=== PATIENT | female | born 1945 | race Caucasian/White ===

== ENCOUNTER 2018-11-04 01:23 | Outpatient (CLI) | payer MEDICARE, MEDICAID | END 2018-11-04 23:59 | disposition home or self-care (01) | LOC: DIABETIC 01:23 | PROVIDERS: ATTEND Specialist | DX: E11.9 Type 2 diabetes mellitus without complications (principal); Z79.4 Long term (current) use of insulin | CPT/HCPCS: G0108 ==

== ENCOUNTER 2019-03-31 02:17 | Outpatient (CLI) | payer MEDICARE, MEDICAID | END 2019-03-31 23:59 | disposition home or self-care (01) | LOC: DIABETIC 02:17 | PROVIDERS: ATTEND Specialist | DX: E11.65 Type 2 diabetes mellitus with hyperglycemia (principal); Z79.899 Other long term (current) drug therapy; Z79.01 Long term (current) use of anticoagulants; Z79.84 Long term (current) use of oral hypoglycemic drugs; Z79.891 Long term (current) use of opiate analgesic; Z88.8 Allergy status to other drugs, medicaments and biological substances; Z88.5 Allergy status to narcotic agent; Z88.2 Allergy status to sulfonamides; Z88.6 Allergy status to analgesic agent | CPT/HCPCS: G0108 ==

== ENCOUNTER 2019-07-13 03:57 | Outpatient (CLI) | payer MEDICARE, MEDICAID | END 2019-07-13 23:59 | disposition home or self-care (01) | LOC: DIABETIC 03:57 | PROVIDERS: ATTEND Specialist | DX: E11.65 Type 2 diabetes mellitus with hyperglycemia (principal); Z79.84 Long term (current) use of oral hypoglycemic drugs; Z79.899 Other long term (current) drug therapy; Z88.2 Allergy status to sulfonamides; Z88.1 Allergy status to other antibiotic agents; Z88.8 Allergy status to other drugs, medicaments and biological substances | CPT/HCPCS: G0108 ==

== ENCOUNTER 2019-10-27 02:03 | Outpatient (CLI) | payer MEDICARE, MEDICAID | END 2019-10-27 23:59 | disposition home or self-care (01) | LOC: DIABETIC 02:03 | PROVIDERS: ATTEND Specialist | DX: E11.9 Type 2 diabetes mellitus without complications (principal) | CPT/HCPCS: G0108 ==